=== PATIENT | female | born 1990 | race Caucasian/White ===

== ENCOUNTER 2016-07-31 03:23 | Day surgery (SDC) | payer SELFPAY ==
--- NOTE | 2016-07-31 04:06 | ERNOTE ---
Abdominal HPI - Narrative Date of Service: 07/31/16 - General Chief Complaint: Abdominal Pain Time Seen by Provider: 07/31/16 03:45 Source: patient - Exam Limitations: no limitations - Immun/Allergies/Home Medications Immunizatons: IMMUNIZATION HX Immunizations Up to Date Yes History of Influenza Vaccine No Hx Pneumococcal Vaccination No Allergies/Adverse Reactions: Allergies gluten Allergy (Intermediate, Verified 07/31/16 09:56) Diarrhea prednisone Adverse Reaction (Mild, Verified 07/31/16 08:34) Vomiting Home Medications: HOME MEDICATIONS Sertraline HCl [Zoloft] 100 mg PO DAILY 04/13/14 [Last Taken 04/13/14] ALPRAZolam [Xanax] 0.5 mg PO BID PRN 07/31/16 [Last Taken Unknown] oxyCODONE HCL/ACETAMINOPHEN [Percocet 5 MG/325 MG] 1 tab PO Q4H PRN #20 tablet 07/31/16 [Last Taken Unknown] - History of Present Illness Narrative: 26 year old that was awoken by LLQ pain, that is sharp and does not radiate. The pain is not as severe as ovarian cysts that she has had previously, and does not feel like it. No complaints of fevers, chills, N/V. Minimal dysuria yesterday, but no frequency. Denies any vaginal discharge. Last bowel movement was yesterday and normal. The last menstrual period was on the 16th of last month. She has not taken any medications for the pain, nor does she want any at this time. Time (Timing): 04:03 Timing: constant Quality: moderate Activities at Onset: none Modifying Factors - (Improves): Present: other - nothing Modifying Factors - (Worsens): Present: other - nothing Associated Symptoms: Present: denies symptoms Prior Abdominal Problems: Present: similar symptoms - but different Review of Systems - Review of Systems Constitutional: Present: no symptoms reported EYE: Present: no symptoms reported ENT: Present: no symptoms reported Respiratory: Present: no symptoms reported Cardiology: Present: no symptoms reported Gastrointestinal/Abdominal: Present: See HPI Genitourinary: Present: See HPI Musculoskeletal: Present: no symptoms reported Skin: Present: no symptoms reported Neurological: Present: no symptoms reported Endocrine: Present: no symptoms reported Hematologic/Lymphatic: Present: no symptoms reported Psych: Present: no symptoms reported - Patient's Past Medical History Patient History - Medical: Other - neurofibromatosis Patient History - Cardiac/Respiratory: No pertinent hx Patient History - Cancer: No Hx of Cancer Patient History - Other: None LMP (females 10-50): last week LMP (Calendar): 07/24/16 - Family History Mother Family History - Cancer: Breast, Colon, Other - Aunt with ovarian cancer, uncle with esophageal cancer Aunt Family History - Medical: No pertinent hx Family History - Cardiac/Respiratory: No pertinent hx Family History - Cancer: Colon, Other - Social History Living Situations: home Psych History: Hx of Anxiety, Hx of Depression, Current tx/ever been on anti- depressants or anti-anxiety meds Does anyone smoke in the home?: No Smoking Status: Never smoker Alcohol Use: occasionally Drug Use: none - Immunizations Immunizations Up to Date: Yes Hx Pneumococcal Vaccination: No History of Influenza Vaccine: No Physical Exam - Physical Exam General Appearance: Present: mild distress Eye Exam: Normal inspection: bilateral Ears, Nose, Throat: Present: normal ENT inspection Neck: Present: normal inspection, supple Respiratory: Present: no respiratory distress Cardiovascular/Chest: Present: regular rate, rhythm Gastrointestinal/Abdominal: Present: nontender, nondistended, soft, no organomegaly Back Exam: Present: normal inspection, no CVA tenderness Extremity Exam: Present: other - nodules present on skin Neurological Exam: Present: alert, oriented, normal mood/affect Skin Exam: Present: normal color ED Progress - Results and Orders Patient's Lab Results:: I have reviewed the patient's lab results. - Vital Signs Patient's Vital Signs:: I have reviewed the patient's vital signs. Vital Signs: Vital Signs 07/31/16 03:26 Temperature 36.5 C Pulse Rate 90 Respiratory 18 Rate Blood Pressure 109/68 O2 Sat by Pulse 99 Oximetry - X-Ray X-Ray #1 X-Ray: abdomen Interpretation: Interp. by me X-ray Comments: Moderate stool burden. - CT/Ultrasound CT/Ultrasound Narrative: CT demonstrated a 5.6 cm ovarian cyst. US pending. - Progress/Reassessment Chief Complaint: Abdominal Pain Progress:: Improved Progress Note-Subjective: 07/31/16 06:30 Minimal improvement of the pain, and continues to be 4/10. - Transfer of Care Physician Sign Out: Johnie Duarte Receiving Physician: Joseph Fisher - US pending Pending Results: Physician/consult arrival Additional Notes: Contact ECD regarding the care of the pateint if the pain continues. There is a concern for torsion. Departure - Departure Clinical Impression: Ovarian cyst
[2016-07-31 04:15] LABS: Hematocrit 39.3 % (37.0-47.0); Hemoglobin 13.5 gm/dL (12.5-16.0); Mean Cell Volume 84.2 fl (78-100); Mean Corpuscular Hemoglobin 28.9 pg (27-31); Mean Corpuscular Hgb Conc 34.4 g/dl (32-36); Mean Platelet Volume 8.1 fl (6.0-9.5); Neutrophil # 5.2 K/mm3 (1.3-6.0); Neutrophil % 69.1 % (42-75.0); Platelet Count 276 K/mm3 (150-450); Red Blood Count 4.67 M/mm3 (4.2-5.4); Red Cell Distribution Width 11.9 % (11.5-14.0); White Blood Count 7.6 K/mm3 (4.0-10.5)
[2016-07-31 04:27] LABS: Anion Gap 9.2 mmol/L (6.8-13.8); BUN/Creatinine Ratio 19.7 (9.0-21.6); Calcium * 8.6 mg/dL (7.9-10.9); Carbon Dioxide 28.6 mmol/L (24-32.6); Estimated Creat Clear 98.6; Potassium 3.8 mmol/L (3.4-4.6)
[2016-07-31 04:48] LABS: Urine Bilirubin Negative (NEGATIVE); Urine Blood Negative /ul (NEGATIVE); Urine Ketone Negative (NEGATIVE); Urine Nitrite Negative (NEGATIVE); Urine Protein Negative (NEGATIVE); Urine Specific Gravity >=1.030 SP.GR. (1.005-1.010); Urine Urobilinogen Normal (NORMAL)
[2016-07-31 04:55] LABS: Urine Appearance Clear; Urine Bacteria 1+; Urine Color Yellow; Urine RBC 0-5 /hpf (0-5); Urine WBC 0-5 /hpf (0-5)
[2016-07-31] MEDS ORDERED: MAGNESIUM CITRATE 300 ML BTL PO ONE (05:05)
[2016-07-31] MEDS ORDERED: MAGNESIUM CITRATE 300 ML BTL ONE (05:13)
[2016-07-31] MEDS ORDERED: NORMAL SALINE 1,000 ML IV PRN (08:04)
[2016-07-31] MEDS ORDERED: ceFAZolin SODIUM 1 GM in DEXTROSE 5 % IN WATER 100 ML IV PRN ×2 (09:55)
[2016-07-31] MEDS ORDERED: RINGER'S SOLUTION,LACTATED 1,000 ML IV PRN (09:55)
[2016-07-31] MEDS ORDERED: RINGER'S SOLUTION,LACTATED 1,000 ML IV ONE ×2 (09:57→11:00)
--- NOTE | 2016-07-31 09:59 | HP ---
Chief Complaint - Chief Complaint Date of Service: 07/31/16 Time of Service: 09:46 Chief Complaint: LLQ abdominal pain History of Present Illness: 26 yo with LMP 07/24/16 was awakened this am from sleep due to severe LLQ abdominal pain which has persisted till present. She presented to [facility] ER for this pain and was diagnosed with a 5-6cm complex left adnexal mass with free fluid in the cul de sac. Her pain has decreased to 4/10 with narcotics. She desires surgical removal of the cyst. - Patient's Past Medical History Patient History - Medical: Anxiety, Depression, Other - neurofibromatosis, congenital hydronephrosis, Celiac disease Patient History - Cardiac/Respiratory: No pertinent hx Patient History - Cancer: No Hx of Cancer Patient History - Surgical Procedures: Other - multiple surgeries for shunt insertion and revision. strabismus surgery Patient History - Other: None LMP (females 10-50): last week LMP (Calendar): 07/24/16 - Family History Family History:: no untoward family reactions to anesthesia, no familial bleeding tendencies, no family history of clotting disorders - Family History Mother Family History - Cancer: Breast, Colon, Other - Aunt with ovarian cancer, uncle with esophageal cancer - Social History Living Situations: home Psych History: Hx of Anxiety, Hx of Depression, Current tx/ever been on anti- depressants or anti-anxiety meds Does anyone smoke in the home?: No Smoking Status: Never smoker Alcohol Use: occasionally Drug Use: none - Immunizations Immunizations Up to Date: Yes Hx Pneumococcal Vaccination: No History of Influenza Vaccine: No Review Of Systems (GEN) - Review of Systems Generalized/Overall Review: Present: No Symptoms Reported EENTM: Present: No Symptoms Reported Respiratory: Present: No Symptoms Reported Cardiac: Present: No Symptoms Reported Abdominal: Present: Abdominal Pain Genitourinary: Present: No Symptoms Reported Musculoskeletal: Present: No Symptoms Reported Neurological: Present: No Symptoms Reported Skin: Present: No Symptoms Reported Endocrine: Present: No Symptoms Reported Immunizations: IMMUNIZATION HX Immunizations Up to Date Yes History of Influenza Vaccine No Hx Pneumococcal Vaccination No Allergies/Adverse Reactions: Allergies Allergy/AdvReac Type Severity Reaction Status Date / Time gluten Allergy Intermediate Verified 07/31/16 03:33 prednisone AdvReac Mild Vomiting Verified 07/31/16 08:34 Home Medications: HOME MEDICATIONS Sertraline HCl [Zoloft] 100 mg PO DAILY 04/13/14 [Last Taken 04/13/14] ALPRAZolam [Xanax] 0.5 mg PO BID PRN 07/31/16 [Last Taken Unknown] Exam - Exam Vital Signs: Vital Signs - Last Taken Temp 37.4 C 07/31/16 09:29 Pulse 77 07/31/16 09:29 Resp 16 07/31/16 09:29 BP 99/80 07/31/16 09:29 Pulse Ox 100 07/31/16 09:29 Constitutional: Present: Alert, Oriented x3, Cooperative, Mild distress ENT Exam: Present: hearing grossly normal Neck: Present: non-tender, supple, normal inspection Back Exam: Present: no CVA tenderness Breasts: Present: Exam deferred Respiratory: Present: lungs clear, normal breath sounds, no respiratory distress Cardiovascular/Chest: Present: normal peripheral pulses, regular rate, rhythm, no edema Abdomen: Present: soft, nondistended, no rebound tenderness /Rectal: Present: Exam deferred Extremity: Present: normal range of motion, non-tender, no pedal edema, no calf tenderness Skin Exam: Present: normal color, warm/dry, no cyanosis Lymphatic: Present: no adenopathy Neurologic: Present: normal mood/affect, oriented x 3 Appearance: Present: appropriate appearance, appropriate insight Eye contact: Present: cooperative, good eye contact Thoughts: Present: normal thought pattern Diagnostic Studies: Abnormal Lab Results 07/31/16 07/31/16 Range/Units 04:10 04:42 Chloride 107 H (97-106) mmol/L Ur Epithelial Cells 5-10 H (0-5) /hpf Urine Bacteria 1+ H (NONE) Laboratory Results WBC 7.6 K/mm3 (4.0-10.5) 07/31/16 04:10 RBC 4.67 M/mm3 (4.2-5.4) 07/31/16 04:10 Hgb 13.5 gm/dL (12.5-16.0) 07/31/16 04:10 Hct 39.3 % (37.0-47.0) 07/31/16 04:10 MCV 84.2 fl (78-100) 07/31/16 04:10 MCH 28.9 pg (27-31) 07/31/16 04:10 MCHC 34.4 g/dl (32-36) 07/31/16 04:10 RDW 11.9 % (11.5-14.0) 07/31/16 04:10 Plt Count 276 K/mm3 (150-450) 07/31/16 04:10 MPV 8.1 fl (6.0-9.5) 07/31/16 04:10 Immature Gran % (Auto) 0.30 % (0.001-0.429) 07/31/16 04:10 Immature Gran # (Auto) 0.02 K/mm3 (0.000-0.0310) 07/31/16 04:10 Neutrophils % 69.1 % (42-75.0) 07/31/16 04:10 Lymphocytes % 20.2 % (20-51) 07/31/16 04:10 Monocytes % 7.7 % (0.0-9) 07/31/16 04:10 Eosinophils % 2.2 % (0.0-3.0) 07/31/16 04:10 Basophils % 0.5 % (0.0-1.0) 07/31/16 04:10 Nucleated RBC % 0.0 k/mm3 (0-1) 07/31/16 04:10 Neutrophils # 5.2 K/mm3 (1.3-6.0) 07/31/16 04:10 Lymphocytes # 1.5 k/mm3 (1.5-3.5) 07/31/16 04:10 Monocytes # 0.6 k/mm3 (0.0-1.0) 07/31/16 04:10 Eosinophils # 0.2 k/mm3 (0.0-0.7) 07/31/16 04:10 Absolute Basophils 0.0 k/mm3 (0.0-0.1) 07/31/16 04:10 Sodium 141 mmol/L (132-142) 07/31/16 04:10 Plasma Sodium 141 mmol/L (130-142) 07/31/16 04:10 Potassium 3.8 mmol/L (3.4-4.6) 07/31/16 04:10 Chloride 107 mmol/L (97-106) H 07/31/16 04:10 Carbon Dioxide 28.6 mmol/L (24-32.6) 07/31/16 04:10 Anion Gap 9.2 mmol/L (6.8-13.8) 07/31/16 04:10 BUN 12 mg/dL (3-23) 07/31/16 04:10 Creatinine 0.61 mg/dL (0.4-1.4) 07/31/16 04:10 Est GFR (Non-Af Amer) 124 mL/min (60-130) D 07/31/16 04:10 BUN/Creatinine Ratio 19.7 (9.0-21.6) 07/31/16 04:10 Random Glucose 97 mg/dL (70-110) 07/31/16 04:10 Calcium 8.6 mg/dL (7.9-10.9) 07/31/16 04:10 Lipase 110 U/L (73-393) 07/31/16 04:10 Serum HCG, Qual Negative (NEGATIVE) 07/31/16 04:10 Urine Color Yellow 07/31/16 04:42 Urine Appearance Clear 07/31/16 04:42 Urine pH 6.0 pH (5.0-7.0) 07/31/16 04:42 Ur Specific Dearing >=1.030 SP.GR. (1.005-1.010) 07/31/16 04:42 Urine Protein Negative mg/dL (NEGATIVE) 07/31/16 04:42 Urine Glucose (UA) Negative mg/dL (NEGATIVE) 07/31/16 04:42 Urine Ketones Negative mg/dL (NEGATIVE) 07/31/16 04:42 Urine Blood Negative /ul (NEGATIVE) 07/31/16 04:42 Urine Nitrate Negative (NEGATIVE) 07/31/16 04:42 Urine Bilirubin Negative mg/dl (NEGATIVE) 07/31/16 04:42 Urine Urobilinogen Normal EU/dl (NORMAL) 07/31/16 04:42 Ur Leukocyte Esterase Negative /ul (NEGATIVE) 07/31/16 04:42 Urine RBC 0-5 /hpf (0-5) 07/31/16 04:42 Urine WBC 0-5 /hpf (0-5) 07/31/16 04:42 Ur Epithelial Cells 5-10 /hpf (0-5) H 07/31/16 04:42 Urine Bacteria 1+ (NONE) H 07/31/16 04:42 Urine Culture Comments No culture indicated 07/31/16 04:42 Assessment/Plan - Assessment/Plan (1) Ovarian cyst rupture Assessment: Complex cyst with pain uncontrolled with narcotics. R/b/a to surgery discussed with patient. She understands the risks and desires to proceed with diagnostic laparoscopy with left ovarian cystectomy, possible oophorectomy, possible lysis of adhesions. All questions answered. Will proceed with surgery. Problem: Acute
[2016-07-31] MEDS ORDERED: LIDOCAINE HCL/EPINEPHRINE 30 ML VIAL IJ ONE (10:45)
--- NOTE | 2016-07-31 13:04 | OR ---
Operative Report - Dictated Report Narrative: DATE OF PROCEDURE: 07/31/2016 INDICATION: 26 year old female with severe abdominal pain due to ruptured left ovarian cyst PREOPERATIVE DIAGNOSIS: Left ovarian cyst, acute abdominal pain POSTOPERATIVE DIAGNOSIS: Same with severe tubo-ovarian adhesions, multiple abdominal adhesions PROCEDURE: Diagnostic laparoscopy. Left ovarian cystectomy. Lysis of adhesions. Left salpingo-oophorectomy. SURGEON: Milton Still D.O. CHEF FRENCH: OR staff ANESTHESIA: General anesthesia ESTIMATED BLOOD LOSS: Less than 20 mL URINE OUTPUT: 800 mL FLUID REPLACEMENT: 1200 mL FINDINGS: Large simple left ovarian cyst, left fallopian tube and ovary densely adherent to the left pelvic sidewall, right tube and ovary densely adherent to right pelvic sidewall, multiple bowel and omental adhesions throughout the abdomen, peritoneal shunt within abdomen - tip within the posterior cul-de-sac SPECIMEN(S): Left tube and ovary. Left ovarian cyst TECHNIQUE: The patient was taken to the operating room and placed in dorsal lithotomy position with SCDs on and 1 g of Ancef given prior to induction of anesthesia. A long Allis clamp was used to grasp the anterior lip the cervix and attached to a Valchev manipulator which was inserted into the cervical canal. Urbina catheter was inserted to gravity drainage. Gloves were changed and attention was turned to the abdomen where the umbilicus was injected with a 1% lidocaine epinephrine solution and carried down through the underlying layers. Scalpel was used to score the skin and a 12 mm non-bladed trocar was inserted via direct technique under direct visualization. Pneumoperitoneum was created with CO2 gas. A 5 mm non-bladed trocar was inserted suprapubically and one in the left lower quadrant in a similar fashion. Through these 3 ports the surgery was carried out with findings as noted above. Using the Thunderbeat and Kleppinger's, the left tube was removed from the pelvic sidewall and omental and peritoneal adhesions were removed from the ovary to allow enough visualization to form the cystectomy. The exposed cyst wall at the area of rupture was grasped and dissected away from the overlying ovarian cortex with laparoscopic graspers. Bleeding from the ovarian cortex was controlled with Kleppinger's. After removing the cyst, it was evident that the tubo-ovarian adhesions were severe enough to prevent future , therefore the tube was removed. In controlling hemostasis and removing adhesions from the ovary the vascular supply was compromised enough to require removal of the entire ovary. The left ovary was placed within an Endobag and removed through the 12 mm port. Copious irrigation was performed and excellent hemostasis was noted. All instruments were removed from the abdomen under direct visualization. The fascia of the 12 mm port was closed with a single 0 Vicryl suture. The skin of all incisions was closed with 4-0 Monocryl and Dermabond. All instruments were removed from the cervix and vagina. The Urbina catheter was removed. Sponge, lap, instrument, and needle count were correct x 2. DISPOSITION: The patient was transferred to postanesthesia care unit in good condition.
[2016-07-31] MEDS ORDERED: MORPHINE SULFATE 2 MG/ML DISP.SYRIN IV PRN (13:34)
[2016-07-31] MEDS ORDERED: oxyCODONE HCL/ACETAMINOPHEN 1 TAB TABLET PO PRN (13:35)
[2016-07-31] MEDS ORDERED: IBUPROFEN 800 MG TABLET PO PRN (13:36)
[2016-07-31 14:43] VITALS: BP 110/63
== END 2016-07-31 08:19 | disposition home or self-care (01) ==
LOC: ER 03:23 → AMB 08:18
PROVIDERS: ATTEND Obstetrics & Gynecology
PROC: 0UT64ZZ Resection of Left Fallopian Tube, Percutaneous Endoscopic Approach (ICD-10-PCS; 2016-07-31)
PROC: 0UB14ZZ Excision of Left Ovary, Percutaneous Endoscopic Approach (ICD-10-PCS; 2016-07-31)
PROC: 0UT14ZZ Resection of Left Ovary, Percutaneous Endoscopic Approach (ICD-10-PCS; principal; 2016-07-31 10:45)
DX: N83.292 Other ovarian cyst, left side (principal); N73.6 Female pelvic peritoneal adhesions (postinfective); F41.9 Anxiety disorder, unspecified; F32.9 Major depressive disorder, single episode, unspecified; Z68.23 Body mass index [BMI] 23.0-23.9, adult

== ENCOUNTER 2016-10-25 15:36 | Emergency (ER) | payer MEDICAID ==
--- NOTE | 2016-10-25 16:29 | ERNOTE ---
Date of Service: 10/25/16 Time Seen by Provider: 10/25/16 16:18 Stated Complaint: SINUS INFECTION Presenting Symptoms:: cough, sore throat, runny nose Source: patient Immunizations: IMMUNIZATION HX Immunizations Up to Date Yes History of Influenza Vaccine Yes Hx Pneumococcal Vaccination Yes Allergies/Adverse Reactions: Allergies gluten Allergy (Intermediate, Verified 10/25/16 16:12) Diarrhea prednisone Adverse Reaction (Mild, Verified 10/25/16 16:12) Vomiting Home Medications: HOME MEDICATIONS Sertraline HCl [Zoloft] 100 mg PO DAILY 04/13/14 [Last Taken 04/13/14] ALPRAZolam [Xanax] 0.5 mg PO BID PRN 07/31/16 [Last Taken Unknown] Doxycycline Hyclate [Morgidox] 100 mg PO BID #20 capsule 10/25/16 [Last Taken Unknown] HYDROcodone/ACETAMINOPHEN [Hydrocodon-Acetaminophen 5-325] 1 each PO PRN PRN [Last Taken Unknown] - History of Present Ilness Timing: constant, getting worse Severity: moderate Frequency/Possible Cause: Reports: occasional episodes Modifying Factors - Improves: Reports: activity Modifying Factors - Worsens: Reports: nothing Associated Symptoms: Reports: cough, shortness of breath, wheezing, nasal congestion, nasal drainage Review of Systems - Review of Systems Constitutional: Present: See HPI, fatigue, malaise EYE: Present: no symptoms reported ENT: Present: nose pain, nose congestion, nasal drainage, sore throat, throat swelling Respiratory: Present: cough Cardiology: Present: no symptoms reported Gastrointestinal/Abdominal: Present: no symptoms reported Genitourinary: Present: no symptoms reported Musculoskeletal: Present: no symptoms reported Skin: Present: no symptoms reported Neurological: Present: no symptoms reported, See HPI Endocrine: Present: no symptoms reported, See HPI Hematologic/Lymphatic: Present: no symptoms reported - Patient's Past Medical History Patient History - Medical: No pertinent hx Patient History - Cardiac/Respiratory: No pertinent hx Patient History - Cancer: No Hx of Cancer Patient History - Surgical Procedures: Other Patient History - Other: None LMP (females 10-50): 2 weeks LMP (Calendar): 07/24/16 - Family History Mother Family History - Medical: No pertinent hx Family History - Cardiac/Respiratory: No pertinent hx Family History - Cancer: No pertinent family hx, Breast, Colon, Other Aunt Family History - Medical: No pertinent hx Family History - Cardiac/Respiratory: No pertinent hx Family History - Cancer: Colon, Other - Social History Living Situations: home Abuse History: No History of abuse Psych History: Hx of Anxiety, Hx of Depression, Current tx/ever been on anti- depressants or anti-anxiety meds Does anyone smoke in the home?: No Smoking Status: Never smoker Alcohol Use: occasionally Drug Use: none - Immunizations Immunizations Up to Date: Yes Hx Pneumococcal Vaccination: Yes History of Influenza Vaccine: Yes Physical Exam - Physical Exam General Appearance: Present: alert, mild distress, anxious Head Exam: Present: normal inspection, no evidence of injury Eye Exam: Normal inspection: bilateral, PERRL: bilateral, EOMI: bilateral Ears, Nose, Throat: Present: pharyngeal erythema, pharyngeal swelling Neck: Present: normal inspection, nontender Respiratory: Present: no respiratory distress, normal breath sounds, no accessory muscle use, chest nontender, lungs clear Cardiovascular/Chest: Present: regular rate, rhythm, no murmur, normal peripheral pulses Peripheral Pulses: N=norm/S=strong/W=weak/B=bound/A=absent: Carotid (R): Normal , Carotid (L): Normal, Radial (R): Normal, Radial (L): Normal, Femoral (R): Normal, Femoral (L): Normal, Dorsalis-pedis (R): Normal, Dorsalis-pedis (L): Normal Gastrointestinal/Abdominal: Present: normal bowel sounds, nontender, no organomegaly Back Exam: Present: normal inspection, normal range of motion, no CVA tenderness , no vertebral tenderness Extremity Exam: Present: normal inspection, non-tender, normal range of motion, no edema Neurological Exam: Present: alert, oriented, normal mood/affect, no motor/ sensory deficits Skin Exam: Present: normal color, warm/dry Lymphatic Exam: Present: no adenopathy ED Progress - Vital Signs Patient's Vital Signs:: I have reviewed the patient's vital signs. Vital Signs: Vital Signs 10/25/16 15:55 Temperature 36.9 C Pulse Rate 96 Respiratory 17 Rate Blood Pressure 123/71 O2 Sat by Pulse 98 Oximetry - Progress/Reassessment Chief Complaint: Upper Respiratory Symptoms Progress:: Unchanged - Transfer of Care Expected Disposition: Discharge Departure - Departure Clinical Impression: Sinusitis Disposition: Home self-care Condition: Fair Instructions: Sinusitis, Adult, [id number] Referrals: Nazario Kasper DO [Primary Care Provider] - Prescriptions: Doxycycline Hyclate [Morgidox] 100 mg PO BID #20 capsule
[2016-10-25 17:09] VITALS: BP 120/70
== END 2016-10-25 17:10 | disposition home or self-care (01) ==
LOC: ER 15:36
DX: J32.9 Chronic sinusitis, unspecified (principal)

== ENCOUNTER 2017-01-19 18:56 | Emergency (ER) | payer BC, OTHER ==
--- NOTE | 2017-01-19 19:35 | ERNOTE ---
Dyspnea - Date Date of Service: 01/19/17 - General Presenting Symptoms: shortness of breath Time Seen by Provider: 01/19/17 19:26 Source: patient, RN notes reviewed Exam Limitations: no limitations - Immun/Allergies/Home Medications Immunizations: IMMUNIZATION HX Immunizations Up to Date Yes History of Influenza Vaccine No Hx Pneumococcal Vaccination No Allergies/Adverse Reactions: Allergies gluten Allergy (Intermediate, Verified 10/25/16 16:12) Diarrhea prednisone Adverse Reaction (Mild, Verified 10/25/16 16:12) Vomiting Home Medications: HOME MEDICATIONS Sertraline HCl [Zoloft] 100 mg PO DAILY 04/13/14 [Last Taken 04/13/14] ALPRAZolam [Xanax] 0.5 mg PO BID PRN 07/31/16 [Last Taken Unknown] - History of Present Illness Narrative: 26 year old female presents with shortness of breath and chest heaviness that began last evening. This has persisted throughout the day today. She has no associated symptoms. Date (Duration): 01/18/17 Treatment SLP TEACHER: none Initiating event: Reports: unknown Frequency of episodes: Reports: no prior episodes Modifying Factors - (Improves): Reports: nothing Modifying Factors (Worsens): Reports: nothing Prior Treatment: Denies: recently seen Review of Systems - Review of Systems Constitutional: Absent: recent illness, fever, chills EYE: Present: no symptoms reported ENT: Absent: nose congestion, sore throat Respiratory: Present: shortness of breath. Absent: cough, orthopnea, wheezing Cardiology: Absent: palpitations, syncope Gastrointestinal/Abdominal: Absent: nausea, vomiting, abdominal pain Genitourinary: Absent: dysuria, hematuria Musculoskeletal: Absent: back pain, muscle pain, neck pain, joint pain Skin: Absent: rash, lesions Neurological: Absent: headache, dizziness/light-headedness Endocrine: Present: no symptoms reported Hematologic/Lymphatic: Absent: easy bruising, easy bleeding Psych: Present: no symptoms reported - Patient's Past Medical History Patient History - Medical: Other - Hydrocephalus, Neurofibromatosis Patient History - Cardiac/Respiratory: Asthma Patient History - Cancer: No Hx of Cancer Patient History - Surgical Procedures: Other - Intracranial shunt Patient History - Other: None LMP (females 10-50): last week - Family History Mother Family History - Medical: No pertinent hx Family History - Cardiac/Respiratory: No pertinent hx Family History - Cancer: No pertinent family hx, Breast, Colon, Other Aunt Family History - Medical: No pertinent hx Family History - Cardiac/Respiratory: No pertinent hx Family History - Cancer: Colon, Other - Social History Living Situations: alone Abuse History: No History of abuse Psych History: Hx of Anxiety, Hx of Depression, Current tx/ever been on anti- depressants or anti-anxiety meds Smoking Status: Never smoker Have you smoked in the past 12 months: No Do you dip or chew tobacco: No Alcohol Use: rarely Drug Use: none - Immunizations Immunizations Up to Date: Yes Hx Pneumococcal Vaccination: No History of Influenza Vaccine: No Physical Exam - Physical Exam General Appearance: Present: wd/wn, alert, no apparent distress Head Exam: Present: normal inspection Neck: Present: normal inspection, nontender, supple, full range of motion Respiratory: Present: no respiratory distress, normal breath sounds, no accessory muscle use, chest nontender, lungs clear Cardiovascular/Chest: Present: regular rate, rhythm, no murmur Extremity Exam: Present: normal inspection, normal range of motion, no edema Neurological Exam: Present: alert, oriented, normal mood/affect, no motor/ sensory deficits Skin Exam: Present: normal color, warm/dry ED Progress - Results and Orders Patient's Lab Results:: I have reviewed the patient's lab results. - Vital Signs Patient's Vital Signs:: I have reviewed the patient's vital signs. Vital Signs: Vital Signs 01/19/17 18:59 Temperature 37.0 C Pulse Rate 82 Respiratory 14 Rate Blood Pressure 121/75 O2 Sat by Pulse 100 Oximetry - EKG EKG: NSR EKG read: Reviewed by me - X-Ray X-Ray #1 X-Ray: chest Interpretation: Reviewed by me X-ray Comments: No acute cardiopulmonary process noted - Progress/Reassessment Chief Complaint: Dyspnea Progress:: Unchanged Departure Clinical Impression: Chest wall pain, Shortness of breath - Departure Disposition: Home Follow Up Needed Condition: Stable Instructions: Form - Excuse from Work, School, or Physical Activity, Chest Wall Pain Referrals: Nazario Kasper DO [Primary Care Provider] -
[2017-01-19 19:59] LABS: Hematocrit 37.8 % (37.0-47.0); Mean Cell Volume 82.2 fl (78-100); Mean Corpuscular Hemoglobin 28.3 pg (27-31); Mean Corpuscular Hgb Conc 34.4 g/dl (32-36); Mean Platelet Volume 8.1 fl (6.0-9.5); Neutrophil # 3.1 K/mm3 (1.3-6.0); Platelet Count 255 K/mm3 (150-450); Red Cell Distribution Width 12.6 % (11.5-14.0); White Blood Count 5.1 K/mm3 (4.0-10.5)
[2017-01-19 20:23] LABS: ALT 12 U/L (19-67); AST 6 U/L (0-48); Albumin * 3.8 gm/dl (3.4-5.0); Alkaline Phosphatase * 59 U/L (50-170); Anion Gap 12.2 mmol/L (6.8-13.8); BUN/Creatinine Ratio 19.3 (9.0-21.6); Bilirubin, Total 0.3 mg/dL (0.0-1.1); Blood Urea Nitrogen 11 mg/dL (3-23); Ca. Corrected For Albumin 8.4 mg/dL (8.4-10.2); Calcium * 8.6 mg/dL (7.9-10.9); Carbon Dioxide 25.6 mmol/L (24-32.6); Chloride 103 mmol/L (97-106); Glucose * 91 mg/dL (70-110); Potassium 3.8 mmol/L (3.4-4.6); Sodium 137 mmol/L (132-142); Total Protein 6.8 gm/dL (6.2-8.2); Troponin I Less than 0.017 ng/ml (0.00-0.10)
[2017-01-19 20:53] VITALS: BP 120/74
== END 2017-01-19 20:51 | disposition home or self-care (01) ==
LOC: ER 18:56
DX: R07.89 Other chest pain; R06.02 Shortness of breath
CPT/HCPCS: 36415; 71020; 71046; 80053; 84484; 85025; 93005; 99282

== ENCOUNTER 2017-02-22 22:50 | Emergency (ER) | payer BC, OTHER ==
[2017-02-22 22:59] VITALS: BP 125/75
[2017-02-22 23:26] LABS: Hematocrit 36.4 % (37.0-47.0); Hemoglobin 12.8 gm/dL (12.5-16.0); Mean Cell Volume 80.4 fl (78-100); Mean Corpuscular Hemoglobin 28.3 pg (27-31); Mean Corpuscular Hgb Conc 35.2 g/dl (32-36); Neutrophil # 4.3 K/mm3 (1.3-6.0); Neutrophil % 64.2 % (42-75.0); Platelet Count 308 K/mm3 (150-450); Red Blood Count 4.53 M/mm3 (4.2-5.4); Red Cell Distribution Width 12.3 % (11.5-14.0); White Blood Count 6.6 K/mm3 (4.0-10.5)
[2017-02-22 23:30] LABS: Urine Bilirubin Negative (NEGATIVE); Urine Blood Negative /ul (NEGATIVE); Urine Ketone Negative (NEGATIVE); Urine Nitrite Negative (NEGATIVE); Urine Protein Negative (NEGATIVE); Urine Specific Gravity 1.025 SP.GR. (1.005-1.010); Urine Urobilinogen Normal (NORMAL)
[2017-02-22 23:38] LABS: Albumin * 4.1 gm/dl (3.4-5.0); Anion Gap 12.4 mmol/L (6.8-13.8); BUN/Creatinine Ratio 25.5 (9.0-21.6); Bilirubin, Total 0.3 mg/dL (0.0-1.1); Ca. Corrected For Albumin 8.2 mg/dL (8.4-10.2); Calcium * 8.6 mg/dL (7.9-10.9); Carbon Dioxide 24.9 mmol/L (24-32.6); Potassium 3.3 mmol/L (3.4-4.6); Total Protein 7.2 gm/dL (6.2-8.2)
--- NOTE | 2017-02-22 23:46 | ERNOTE ---
ER Female HPI Stated Complaint: urinary pain and back pain Presenting Symptoms: dysuria Time Seen by Provider: 02/22/17 23:11 Source: patient Exam Limitations: no limitations Immunizations: IMMUNIZATION HX Immunizations Up to Date Yes History of Influenza Vaccine No Hx Pneumococcal Vaccination No Allergies/Adverse Reactions: Allergies gluten Allergy (Intermediate, Verified 10/25/16 16:12) Diarrhea prednisone Adverse Reaction (Mild, Verified 10/25/16 16:12) Vomiting Home Medications: HOME MEDICATIONS Sertraline HCl [Zoloft] 100 mg PO DAILY 04/13/14 [Last Taken 04/13/14] ALPRAZolam [Xanax] 0.5 mg PO BID PRN 07/31/16 [Last Taken Unknown] - History of Present Illness Narrative: Has had urgency and frequency for approx 2 weeks. Having some back pain tonight as well. Timing: Present: getting worse Quality: Present: moderate Onset Location: Present: urethral Radiation: Present: none Activities at Onset: Present: none Prior Abdominal Problems: Present: similar symptoms Associated Symptoms: Present: nausea. Absent: fever/chills Review of Systems - Review of Systems Constitutional: Present: chills - but has been cold over all. Absent: recent illness, fever EYE: Present: no symptoms reported ENT: Present: no symptoms reported Respiratory: Absent: shortness of breath Cardiology: Absent: chest pain Gastrointestinal/Abdominal: Absent: vomiting, diarrhea Genitourinary: Present: See HPI Musculoskeletal: Present: back pain - mild lower back Skin: Present: no symptoms reported Neurological: Present: no symptoms reported Endocrine: Present: no symptoms reported Hematologic/Lymphatic: Present: no symptoms reported Psych: Present: no symptoms reported - Patient's Past Medical History Patient History - Medical: Other Patient History - Cardiac/Respiratory: Asthma Patient History - Cancer: No Hx of Cancer Patient History - Surgical Procedures: Other Patient History - Other: None LMP (females 10-50): last week LMP (Calendar): 02/15/17 - Family History Mother Family History - Medical: No pertinent hx Family History - Cardiac/Respiratory: No pertinent hx Family History - Cancer: No pertinent family hx, Breast, Colon, Other Aunt Family History - Medical: No pertinent hx Family History - Cardiac/Respiratory: No pertinent hx Family History - Cancer: Colon, Other - Social History Living Situations: home Abuse History: No History of abuse Psych History: Hx of Anxiety, Hx of Depression, Current tx/ever been on anti- depressants or anti-anxiety meds Smoking Status: Never smoker Have you smoked in the past 12 months: No Do you dip or chew tobacco: No Alcohol Use: occasionally Drug Use: none - Immunizations Immunizations Up to Date: Yes Hx Pneumococcal Vaccination: No History of Influenza Vaccine: No Physical Exam - Physical Exam General Appearance: Present: wd/wn, alert, no apparent distress Head Exam: Present: normal inspection, no evidence of injury Ears, Nose, Throat: Present: normal ENT inspection Neck: Present: normal inspection, nontender Respiratory: Present: no respiratory distress, normal breath sounds, no accessory muscle use, lungs clear Cardiovascular/Chest: Present: regular rate, rhythm, no murmur, normal peripheral pulses Gastrointestinal/Abdominal: Present: normal bowel sounds, nondistended, tenderness - minimal suprapubic Back Exam: Present: normal inspection, normal range of motion, no CVA tenderness Extremity Exam: Present: normal inspection, normal except -, normal range of motion Neurological Exam: Present: alert, oriented, normal mood/affect, no motor/ sensory deficits Skin Exam: Present: normal color, warm/dry ED Progress - Results and Orders Patient's Lab Results:: I have reviewed the patient's lab results. Results and Orders: Laboratory Tests 02/22/17 02/22/17 02/22/17 23:13 23:24 23:24 WBC 6.6 Hgb 12.8 Hct 36.4 L Plt Count 308 Sodium 136 Potassium 3.3 L Chloride 102 Carbon Dioxide 24.9 BUN 14 Creatinine 0.55 Random Glucose 96 Calcium 8.6 Total Bilirubin 0.3 AST 7 ALT 12 L Alkaline Phosphatase 64 Total Protein 7.2 Albumin 4.1 Urine Color Yellow Urine Appearance Clear Urine pH 6.0 Ur Specific [place] 1.025 Urine Protein Negative Urine Glucose (UA) Negative Urine Ketones Negative Urine Blood Negative Urine Nitrate Negative Urine Bilirubin Negative Urine Urobilinogen Normal Ur Leukocyte Esterase Negative Urine RBC None seen Urine WBC Trace H Ur Epithelial Cells >25 H Urine Bacteria 1+ H Urine Yeast Moderate - 2+ H Urine Culture Comments No culture indicated - Vital Signs Patient's Vital Signs:: I have reviewed the patient's vital signs. Vital Signs: Vital Signs 02/22/17 22:55 Temperature 37 C Pulse Rate 86 Respiratory 13 Rate Blood Pressure 125/75 O2 Sat by Pulse 100 Oximetry - Progress/Reassessment Chief Complaint: Urinary Tract Problems Progress:: Improved Departure Clinical Impression: Vaginitis due to Leann - Departure Disposition: Home self-care Condition: Good Instructions: Vaginal Yeast Infection, Adult Additional Instructions: See your primary care provider or mental telepathist if not improving. Referrals: Nazario Kasper DO [Primary Care Provider] -
[2017-02-22 23:53] LABS: Urine Appearance Clear; Urine Color Yellow
[2017-02-22 23:54] LABS: Urine Bacteria 1+; Urine RBC None Seen /hpf (0-5); Urine WBC TRACE /hpf (0-5); Urine Yeast Moderate - 2+
[2017-02-23] MEDS ORDERED: FLUCONAZOLE 100 MG TABLET PO ONE ×2 (00:03)
[2017-02-23] MEDS ORDERED: FLUCONAZOLE 100 MG TABLET ONE (00:05)
== END 2017-02-22 23:49 | disposition home or self-care (01) ==
LOC: ER 22:50
DX: B37.3 Candidiasis of vulva and vagina (principal)